=== PATIENT | female | born 1980 | race Caucasian/White ===

== ENCOUNTER 2023-08-20 14:08 | Outpatient (RCR) | payer BC, SELFPAY | END 2023-11-02 15:58 | disposition home or self-care (01) | PROVIDERS: Visit Provider Orthopaedic Surgery Sports Medicine | DX: M16.31 Unilateral osteoarthritis resulting from hip dysplasia, right hip (principal); Z96.641 Presence of right artificial hip joint; Z51.89 Encounter for other specified aftercare | CPT/HCPCS: 97110; 97162 ==

== ENCOUNTER 2023-08-31 14:44 | Outpatient (CLI) | payer BC, SELFPAY | END 2023-08-31 14:45 | disposition home or self-care (01) | PROVIDERS: Visit Provider Orthopaedic Surgery Sports Medicine | DX: Z01.818 Encounter for other preprocedural examination (principal) | CPT/HCPCS: 36415; 86850; 86900; 86901 ==

== ENCOUNTER 2023-09-02 06:06 | Day surgery (SDC) | payer BC, SELFPAY ==
[2023-09-02] VITALS (19 sets, daily range): BP systolic 100–132; BP diastolic 47–80; PULSE 51–72; RESP 12–16; TEMP 35.9–36.7; O2SAT 96–100; BMI 27.3
[2023-09-02 06:32] LABS: Ur HCG Qualitative* Negative (Negative)
[2023-09-02] MEDS: ACETAMINOPHEN 500 MG TABLET 1000 MG PO (06:52)
[2023-09-02] MEDS: OXYCODONE (CR) 10 MG TAB.ER.12H PO (06:52)
[2023-09-02] MEDS: SODIUM CHLORIDE 0.9 % (FLUSH) 10 ML SYRINGE IVF (06:59)
[2023-09-02] MEDS: LACTATED RINGERS 1000 ML 1,000 ML 100 ML IV ×2 (06:59→08:12)
[2023-09-02] MEDS: fentaNYL 100 MCG/2 ML inj IVP (07:15)
[2023-09-02] MEDS: MIDAZOLAM HCL 1 MG/ML inj IVP (07:15)
--- NOTE | 2023-09-02 07:18 | W.PM.H&PU ---
History & Physical Update History & Physical Update H&P Reviewed and patient assessed: No changes noted
--- NOTE | 2023-09-02 07:23 | SUR.PREOP ---
TIME?OUT:?0710, right hip PT/RN/MDA?VERIFICATION?OF?SURGICAL?SITE,?PROCEDURE,?AND?CONSENT OBTAINED?PRIOR?TO?INVASIVE?PROCEDURE.
--- NOTE | 2023-09-02 07:30 | CRLHL7_ITS ---
For Patients: As a result of the Century Cures Act, medical imaging exams and procedure reports are released immediately into your electronic medical record. You may view this report before your referring provider. If you have questions, please contact your health care provider. INDICATION: Right hip replacement. Followup. TECHNIQUE: Single portable intraoperative image of the right hip. Fluoroscopic guidance utilized. FINDINGS: There is a right total hip arthroplasty. The components appear to be adequately aligned and well seated. 50.9 seconds fluoroscopy time utilized. IMPRESSION: 50.9 seconds fluoroscopy time utilized intraoperatively. Dictated by Wade Vanegas MD @ 09/02/2023 11:12:26 AM (Electronically Signed)
[2023-09-02] MEDS: CEFAZOLIN 2 GM in 0.9 % SODIUM CHLORIDE Mini-bag 100 ML IVPB (08:00)
--- NOTE | 2023-09-02 08:00 | P.NB_ITS ---
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 Images saved: Yes Medications given in 5ml increments after negative aspiration: Ropivicaine %: 0.5 mL: 30 Needle gauge: 20 Decadron (mg): 10 Precedex (mcg): 25 Patient tolerated procedure well: Yes Additional comments: Needle noted below psoas tendon needle noted adjacent to LFCN Block Charges Block Charge (with Pro Fee): Other Periph Nerve Block Use of Ultrasound Machine for Block: Yes- US Guidance/pain block
--- NOTE | 2023-09-02 08:00 | W.ANESCHARGE ---
Anesthesia Charges Start Date/Time Anesthesia Start Date: 09/02/23 Anesthesia Start Time: 07:38 Stop Date/Time Anesthesia Stop Date: 09/02/23 Anesthesia Stop Time: 10:35
[2023-09-02] MEDS: TRANEXAMIC ACID 100 MG/ML INJ 1000 MG IV (08:10)
--- NOTE | 2023-09-02 09:50 | PM.ORPRC ---
Procedure Note Date of procedure: 09/02/23 Procedure: PREOPERATIVE DIAGNOSIS: 1. Right hip osteoarthritis, severe, primary POSTOPERATIVE DIAGNOSIS: 1. Right hip osteoarthritis, severe, primary PROCEDURE: 1. Right total hip arthroplasty-anterior approach 2. 16279 - intraoperative fluoroscopy up to 1 hour. SURGEON: Irvin Bermudez MD. LEAD RECREATION ASSISTANT: Isaias Murdock PA-C; Bita Morillo PA-C - Of note, a skilled tutoring assistant was critical for this case to aid in patient positioning, tissue retraction, limb manipulation/positioning, and closure. ANESTHESIA: Spinal anesthetic EBL: 800 mL IMPLANTS: DePuy J[employer]J uncemented total hip [place] cup size 52, single cancellous acetabular screw, hole eliminator, +4 neutral liner Actis stem, standard offset, size 7 +1.5 mm ceramic 36 mm head COMPLICATIONS: None evident INDICATIONS: The patient is a pleasant 42-year-old female who has experienced severe right hip pain and difficulty bearing weight. Workup included x-rays which revealed severe osteoarthrosis in the hip. Given the deformity, the dysfunction, and the pain, as well as the failure of nonoperative management, recommendation was made for surgery. FINDINGS: Full-thickness chondral loss throughout the femoral head with flattening to the femoral head. Large circumferential osteophytes around the femoral head/neck junction. Significant chondromalacia acetabulum as well. Moderate effusion upon entering the joint. DESCRIPTION OF PROCEDURE: Following a thorough discussion of risks, benefits, and alternatives consent was obtained and the right hip was marked. The patient was brought to the operating room and placed supine on the operating table. Induction of anesthesia was undertaken. 2 g IV Ancef and 1 g tranexamic acid was administered within 1 hr of incision preoperatively. Proper time-out was performed identifying proper patient, site, procedure. The operative extremity was prepped and draped in the appropriate sterile fashion using ChloraPrep after the patient was positioned on the [place] table with head in neutral alignment and all bony prominences well padded. C-arm fluoroscopic imaging was utilized to confirm proper pelvis rotation and position, and to get true AP films of both the contralateral left, and the affected right hip. This is for comparison. A longitudinal incision was made starting approximately 1 cm distal to the ASIS, and 3-4 cm lateral. The incision was extended distally aiming toward the lateral border the patella. Sharp incision through skin and bovie cautery through the subcutaneous tissue allowed identification of the TFL fascia. This was sharply divided, and the fascia bluntly released from the muscle fibers as we dissected medial. Upon coming to the medial border, we were able to retract the TFL laterally, and penetrated the deeper fascia and identify the crossing circumflex vessels. These were ligated/cauterized. The rectus was elevated from the capsule, and retractors placed laterally and medially along the femoral neck to help with visualization of the capsule. We then performed an inverted T capsulotomy. The capsule was tagged for later repair. Retractors were placed inside the capsule. The femoral neck was visualized after releasing medially down to the lesser trochanter, along the saddle laterally, and up onto the acetabulum. The femoral neck cut was made in line with our preoperative templating. The head was removed in a single piece, and sized. We turned our attention to acetabular preparation. Initially, the labrum was resected from around the perimeter, the pulvinar was excised, allowing us to visualize the false wall. We started the reaming with a 43 mm reamer. This was medialized down to the true wall. We then enlarged our reamers sequentially up to one size less than the selected cup size. We trialed at the same size and found it to have an excellent fit. The selected cup was then opened, inserted, and impacted in line with the goal of 40? of abduction, and 20-25? of anteversion. This was confirmed on C-arm fluoroscopic imaging to be in the appropriate/goal position. Once the cup was placed we placed a hole eliminator and a liner consistent with preop planning. Attention was turned to the femoral preparation. The limb was extended, externally rotated, and adducted. The posteromedial capsule was released, as retractors were placed allowing excellent access to the proximal femur. Initially a box toe cutter was followed by canal finder followed by various broaches. We broached sequentially up to the size noted above, found it to have excellent rotational control, and trialing various heads and necks, revealed that appropriate neck offset, and the above noted head size provided the greatest stability, and cheondoism of length, and offset. C-arm fluoroscopic imaging confirmed position of the stem, as well as leg lengths, which were compared with the pre procedure all fluoroscopic images. Trial implants were removed, the real femoral stem inserted, as was the appropriate head. After reducing, the leg was placed through range of motion and stability was confirmed anterio have a r, posterior, and lateral. A 3 min Betadine soak was then performed, and thorough irrigation with normal saline followed. Closure of the capsule was performed with #1 PDS. Bleeding was confirmed to be controlled at this stage, and the TFL fascia was closed with #0 strata fix. Subcutaneous, and subcuticular closure was performed with 2-0 Vicryl and 4-0 Monocryl, respectively. Dressings were applied, and the patient was awoken from anesthesia and transferred the PACU in stable condition. A skilled tutoring assistant was critical for this case to aid in patient positioning, tissue retraction, acetabular and proximal femoral exposure, limb manipulation/positioning, dislocation/relocation, patient safety, and closure. PLAN: 1. Weight bear as tolerated operative extremity. 2. Ice. 3. PT/OT consults for ambulation assistance/mobility education. 4. DVT prophylaxis with at SCDs, Tyrone Krystinae, and Xarelto x5 days followed by aspirin for a total of 1 month..
--- NOTE | 2023-09-02 10:36 | W.ANESCHARGE ---
Anesthesia Charges Start Date/Time Anesthesia Start Date: 09/02/23 Anesthesia Start Time: 07:38 Stop Date/Time Anesthesia Stop Date: 09/02/23 Anesthesia Stop Time: 10:35
[2023-09-02] MEDS: LACTATED RINGERS 1000 ML 1,000 ML 35 ML IV (10:51)
--- NOTE | 2023-09-02 11:02 | CRLHL7_ITS ---
For Patients: As a result of the Cures Act, medical imaging exams and procedure reports are released immediately into your electronic medical record. You may view this report before your referring provider. If you have questions, please contact your health care provider. Indication: Right hip arthroplasty Technique: Pelvis and right hip 2 view Findings: Hardware from a right hip arthroplasty is in satisfactory position. Bone alignment is normal. No sign of acute fracture. There are postoperative changes in the soft tissues. Dictated by Maxx Ramos MD @ 09/04/2023 7:57:16 AM (Electronically Signed)
--- NOTE | 2023-09-02 13:30 | SUR.PHASEII ---
PT/OT here
--- NOTE | 2023-09-02 13:40 | SUR.PHASEII ---
pt to pt
[2023-09-02] MEDS: ONDANSETRON 2 MG/ML inj 4 MG IVP (13:57)
--- NOTE | 2023-09-02 14:33 | SUR.PHASEII ---
pt became pale and dizzy, nauseated after she sat up. She laid back down, restarted fluids and gave Zofran, as ordered. Pt stated she felt better within 20minutes. She sat back up, still quite pale but not nauseated. Bp at baseline.
--- NOTE | 2023-09-02 14:59 | SUR.PHASEII ---
pt did well for PT. remains pale but no longer light headed or nauseated. Had Kolton from Anesthesia assess pallor. He was not concerned
== END 2023-09-02 15:01 | disposition home or self-care (01) ==
PROVIDERS: Visit Provider Orthopaedic Surgery Sports Medicine
PROC: (CPT 27130; principal; 2023-09-02 07:30)
DX: M16.11 Unilateral primary osteoarthritis, right hip (principal); G89.18 Other acute postprocedural pain
CPT/HCPCS: 27130; 01214; 64450; 73501; 73502; 76000; 76942; 81025; 97116; 97161; 97165; A9270; C1713; C1776; J0330; J0690; J1100; J2250; J2371; J2405; J2704; J2795; J3010; J7120

== ENCOUNTER 2025-08-03 13:03 | Outpatient (CLI) | payer OTHER, SELFPAY ==
--- NOTE | 2025-08-03 13:20 | CRLHL7_ITS ---
For Patients: As a result of the Century Cures Act, medical imaging exams and procedure reports are released immediately into your electronic medical record. You may view this report before your referring provider. If you have questions, please contact your health care provider. INDICATION: BILATERAL SCREENING MAMMOGRAM, ASYMPTOMATIC 44 Y/O FEMALE COMPARISON: 03/05/2023 TECHNIQUE: Digital mammogram in CC and MLO projections including computer-aided detection (CAD) and tomosynthesis. BREAST COMPOSITION: There are scattered areas of fibroglandular density. FINDINGS: No suspicious findings. ASSESSMENT: BI-RADS 1 Negative RECOMMENDATION: Annual screening mammogram. A lay language report of this examination will be provided to the patient. Dictated by: Ari Polanco MD @ 08/04/2025 08:34:17 (Electronically Signed)
== END 2025-08-03 13:04 | disposition home or self-care (01) ==
LOC: MAMMO 13:03
PROVIDERS: Visit Provider Physician Assistant Medical
DX: Z12.31 Encounter for screening mammogram for malignant neoplasm of breast (principal)
CPT/HCPCS: 77063; 77067